=== PATIENT | female | born 1965 | race Caucasian/White ===

== ENCOUNTER 2023-11-29 10:08 | Day surgery (SDC) | payer BC ==
[2023-11-29] VITALS (14 sets, daily range): BP systolic 111–165; BP diastolic 68–75; PULSE 69–75; RESP 8–16; TEMP 97.4; O2SAT 95–100
[~2023-11-29] VITALS: Ht 162.6 cm; Wt 70.3 kg
[~2023-11-29 10:08] MED LIST: CALC500T63 PO; CELE-127 PO; CRANBERRY CAPS PO; DULO20CA18 PO; FLUT16SP2 BOTHNARES; IRON PO; TRAZ-251 PO; [UNRECOGNIZED DRUG - CODE] PO; [UNRECOGNIZED DRUG - OTHER] PO; cefazolin 2gm/D5W 100mL 100 ML IV ONE; famotidine 20mg tablet PO ONE; oxymetazoline 15 ML nasal spray NS ONE; ringers solution, lacted 1,000 ML IV SCH; tranexamic acid inj. 1,000 MG in normal saline IV soln 100ML IV ONE
[2023-11-29] MEDS ORDERED: ondansetron/PF 4mg/2ml inj IV PRN (10:35)
[2023-11-29] MEDS ORDERED: morphine 4 MG/ML inj SYRINge IV PRN (10:35)
[2023-11-29] MEDS ORDERED: labetalol 20mg/4ml (5mg/ml) syringe IV PRN (10:35)
[2023-11-29] MEDS ORDERED: morphine 2 MG/ML inj. syringe IV PRN (10:35)
[2023-11-29] MEDS ORDERED: hydrALAZINE 20mg/ml inj. IV PRN (10:35)
[2023-11-29] MEDS ORDERED: fentaNYL/PF 50MCG/1 ML 2ML syringe IV PRN ×2 (10:35)
[2023-11-29] MEDS ORDERED: ringers solution, lacted 1,000 ML IV SCH (10:35)
[2023-11-29] MEDS ORDERED: tranexamic acid 100mg/ml inj. ONE (11:03)
[2023-11-29] MEDS ORDERED: LIDOcaine 1% w/EPI 1:100,000 inj. MDV 50 ML VIAL ONE (11:03)
[2023-11-29] MEDS ORDERED: cocaine 4% topical solution 4ml bottle ONE (11:03)
[2023-11-29] MEDS ORDERED: oxymetazoline 15 ML nasal spray NS ONE ×2 (11:04→13:00)
[2023-11-29] MEDS ORDERED: epiNEPHrine 1 mg/ml 30ml MDV ONE (11:04)
[2023-11-29] MEDS ORDERED: mupirocin 2% ointment 22GM ONE (11:04)
[2023-11-29] MEDS ORDERED: propofol inj 20 ML IV ONE (12:17)
[2023-11-29] MEDS ORDERED: ondansetron/PF 4mg/2ml inj ONE (12:17)
[2023-11-29] MEDS ORDERED: LIDOcaine 2% (20mg/ml) 5ml vial ONE (12:17)
[2023-11-29] MEDS ORDERED: sevoflurane 250ml liquid IH ONE (12:17)
[2023-11-29] MEDS ORDERED: dexamethasone sod phosphate 4mg/ml inj. ONE (12:17)
[2023-11-29] MEDS ORDERED: midazolam 1 mg/ML 2ml injection ONE (12:18)
[2023-11-29] MEDS ORDERED: fentaNYL/PF 50MCG/1 ML 2ML syringe ONE (12:18)
[2023-11-29] MEDS ORDERED: acetaminophen 1,000mg/100ml IV 100 ML IV ONE (12:19)
[2023-11-29] MEDS ORDERED: cocaine 4% topical solution 4ml bottle TP ONE (13:00)
[2023-11-29] MEDS ORDERED: LIDOcaine 1% w/EPI 1:100,000 inj. MDV 50 ML VIAL SQ ONE (13:00)
[2023-11-29] MEDS ORDERED: mupirocin 2% ointment 22GM TP ONE (13:00)
[2023-11-29] MEDS ORDERED: epiNEPHrine 1 mg/ml inj SQ ONE (13:00)
[2023-11-29] MEDS ORDERED: salt irrigation nasal spray 45 ML SPRAY NS PRN (16:05)
[2023-11-29] MEDS ORDERED: mupirocin 2% nasal ointment 1gm UD NS SCH (20:00)
[2023-11-29] MEDS ORDERED: oxymetazoline 15 ML nasal spray NS SCH (20:00)
== END 2023-11-29 16:49 | disposition home or self-care (01) ==
LOC: PAS 10:08
PROVIDERS: ATTEND Otolaryngology
DX: J34.2 Deviated nasal septum (principal); J34.3 Hypertrophy of nasal turbinates; J32.8 Other chronic sinusitis; G89.29 Other chronic pain; M19.09 Primary osteoarthritis, other specified site; G25.81 Restless legs syndrome; Z88.2 Allergy status to sulfonamides; Z88.8 Allergy status to other drugs, medicaments and biological substances; Z79.899 Other long term (current) drug therapy; Z98.890 Other specified postprocedural states
CPT/HCPCS: 30140; 30520; 31254; 31256; 31257; 61782; 93005; A6402; J0131; J0171; J0690; J1100; J2250; J2270; J2405; J2704; J3010; J3490; J7030; J7050; J7120; Z7506; Z7508; Z7512; A4618; A6449; A7000